=== PATIENT | male | born 2000 ===

== ENCOUNTER 2022-12-18 08:46 | Outpatient (CLI) | payer BC, SELFPAY | END 2022-12-18 08:47 | disposition home or self-care (01) | PROVIDERS: PCP Emergency Medicine; Visit Provider Emergency Medicine | DX: Z00.00 Encounter for general adult medical examination without abnormal findings (principal); R53.83 Other fatigue; Z13.0 Encounter for screening for diseases of the blood and blood-forming organs and certain disorders involving the immune mechanism; Z13.1 Encounter for screening for diabetes mellitus | CPT/HCPCS: 80053; 84403; 84443 ==